=== PATIENT | male | born 1975 | race Caucasian/White ===

== ENCOUNTER 2016-07-29 10:01 | Emergency (ER) | payer SELFPAY ==
[~2016-07-29] VITALS: Ht 182.9 cm; Wt 99.0 kg
[2016-07-29 10:09] VITALS: BP 124/73; PULSE 75; RESP 16; TEMP 98.1; O2SAT 100
--- NOTE | 2016-07-29 10:40 | PD ---
HPI Chief Complaint: Injury Time Seen by Provider: 10:31 Travel History International Travel<30 days: No Contact w/Intl Traveler<30days: No Traveled to known affect area: No History of Present Illness HPI 40-year-old male with no significant past medical issues, presents to the ER today because he states that since he had fallen off of a bridge in May, had rib fractures in the left, and states that it has been hurting him on and off since then and he has not been able to obtain follow-up care. He states that he is able to work, but he gets a 5 out of 10 pain intermittently and wants to get it checked out further. He feels dyspnea in the area at times. He denies any fevers or any other issues. Modifying Factors: Worse with movement Associated Signs & Symptoms: 5 out of 10 left rib pain Risk Factors: Prior rib injury in May [facility] Past Medical History Diminished Hearing: No Tetanus Vaccination: < 5 Years Influenza Vaccination: No Social History Alcohol Use: Yes (socially) Tobacco Use: Yes (1-2 ppd) Substance Use: No Allergies-Medications (Allergen,Severity, Reaction): Coded Allergies: No Known Allergies (Unverified , 07/29/16) Reported Meds & Prescriptions Reported Meds & Active Scripts Active No Active Prescriptions or Reported Medications Review of Systems Except as stated in HPI: all other systems reviewed are Neg Physical Exam Narrative GENERAL: Young white male patient who is well-developed, awake, alert, oriented 3. Not in acute distress. SKIN: Warm and dry. HEAD: Atraumatic. Normocephalic. EYES: Pupils equal and round. No scleral icterus. No injection or drainage. ENT: No nasal bleeding or discharge. Mucous membranes pink and moist. NECK: Trachea midline. No JVD. CARDIOVASCULAR: Regular rate and rhythm. No murmur appreciated. CHEST: Mild tenderness to palpation of the left lower posterior ribs without deformity or crepitance. No retractions or use of accessory muscles. RESPIRATORY: No accessory muscle use. Clear to auscultation. Breath sounds equal bilaterally. GASTROINTESTINAL: Abdomen soft, non-tender, nondistended. Hepatic and splenic margins not palpable. MUSCULOSKELETAL: No obvious deformities. No clubbing. No cyanosis. No edema. NEUROLOGICAL: Awake and alert. No obvious cranial nerve deficits. Motor grossly within normal limits. Normal speech. PSYCHIATRIC: Appropriate mood and affect; insight and judgment normal. Data Data Last Documented VS Vital Signs Date Time Temp Pulse Resp B/P Pulse Ox O2 Delivery O2 Flow Rate FiO2 07/29/16 10:22 75 16 100 Room Air 07/29/16 10:09 98.1 124/73 Orders Ribs, Uni (W/Exp Cxr-Min 3vw) (07/29/16 10:32) MDM Medical Decision Making Medical Screen Exam Complete: Yes Emergency Medical Condition: Yes Medical Record Reviewed: Yes Differential Diagnosis Left rib pain after injuryhealing fractures versus pneumonia versus pleurisy Narrative Course X-rays did not show any signs of acute processes. At this point, I suspect that the pain is secondary to his ongoing healing process rather than any worsening in issues. My plan would be to release the patient with follow-up to primary care physician. Return for any worsening in symptoms as necessary. The plan has discussed with him and he states understanding. Diagnosis Primary Impression: Rib pain on left side Med/Other Pt SpecificInfo: Prescription(s) given Scripts Ibuprofen (Motrin Ib)200 Mg Veu470 Mg PO Q6H PRN (PAIN SCALE 1 TO 10) #20 TAB Ref 0 Prov:Isma Naranjo MD 07/29/16 Disposition: 01 DISCHARGE HOME Condition: Stable Isma Naranjo MD Jul 29, 2016 10:40
--- NOTE | 2016-07-29 11:14 | RADHPO ---
EXAM DATE/TIME: 07/29/2016 10:47 [facility] COMPARISON: No previous studies available for comparison. INDICATIONS : Patient states fell off a bridge 2 or 3 months ago. Complains of left lower posterior rib pain. MEDICAL HISTORY : None. SURGICAL HISTORY : None. ENCOUNTER: Initial ACUITY: 3 months PAIN SCORE: 10/10 LOCATION: Left posterior lower ribs FINDINGS: Multiple views of the left ribs were performed. There is no evidence of displaced fracture. No dest ructive lesions or areas of periosteal thickening are seen. Expiratory view of the chest is negative for pneumothorax. The mediastinal structures are midline. CONCLUSION: No acute disease. Alberto Erickson MD on July 29, 2016 at 11:10 Board Certified Radiologist. This report was verified electronically.
[2016-07-29] MEDS ORDERED: MOTR200T4 PO (11:33)
== END 2016-07-29 11:42 | disposition home or self-care (01) ==
LOC: PHED 10:01
DX: R07.81 Pleurodynia (principal); R06.00 Dyspnea, unspecified; F17.210 Nicotine dependence, cigarettes, uncomplicated
CPT/HCPCS: 71101; 99283